=== PATIENT | female | born 1975 | race Caucasian/White ===

== ENCOUNTER 2021-01-29 10:35 | Outpatient (REF) | payer MEDICARE, MEDICAID, SELFPAY ==
[2021-01-29 11:45] LABS: COVID-19 Test Negative (Negative)
== END 2021-01-29 10:36 | disposition home or self-care (01) ==
LOC: HO.LAB 10:35
PROVIDERS: PCP Family Medicine; Visit Provider Internal Medicine
DX: Z20.822 Contact with and (suspected) exposure to COVID-19 (principal)
CPT/HCPCS: 36415; 87635; C9803

== ENCOUNTER 2022-10-16 17:40 | Emergency (ER) | payer OTHER, SELFPAY ==
--- NOTE | ~2022-10-16 | XR_ITS ---
EXAMINATION: XR WRIST, LEFT XR HAND, LEFT CLINICAL INFORMATION: Middle finger knuckle pain. COMPARISON: None available. TECHNIQUE: 4 views of the left hand including the wrist. FINDINGS: Moderate diffuse osteopenia. Moderate Triscaphe joint osteoarthrosis. No radiographic evidence of any displaced fracture and/or subluxation or radiopaque foreign body. XR/XR hand wrist LT IMPRESSION: Moderate diffuse osteopenia and moderate Triscaphe joint joint osteoarthrosis. No radiographic evidence of any displaced fracture, subluxation or dislocation or radiopaque foreign body.
[2022-10-16 18:39] VITALS: BP 137/70; PULSE 80; RESP 18; TEMP 37.1; O2SAT 98; BMI 27.1
--- NOTE | 2022-10-16 18:41 | ED.GENADULT ---
HPI - General Adult General Chief complaint: Extremity Injury, Upper Stated complaint: Rash on legs/Left hand knuckle injury Time Seen by Provider: 10/16/22 20:01 Source: patient Mode of arrival: ambulatory History of Present Illness HPI narrative: 47 yold female pressents to the ED for bilateral lower extremity itchy rash. patient denies any angioedema, chest pain, shortenss of breath, fever, chills, nausea, or vomitting. patient states having mutliple allergies. Secondary complaint of middle finger knuckle pain after hearing popping sound when sqeezing left hand to calm her anxiety. Related Data Previous Rx's Medication Instructions Recorded diphenhydramine HCl 25 mg capsule 25 mg PO TID PRN allergic reaction 10/16/22 (Benadryl) 7 days #21 caps famotidine 20 mg tablet (Pepcid) 20 mg PO BID 7 days #14 tabs 10/16/22 hydrocortisone 1 % topical cream 1 appl topical BID PRN rash #28.35 10/16/22 grams prednisone 20 mg tablet 40 mg PO DAILY 5 days #10 tabs 10/16/22 Allergies Allergy/AdvReac Type Severity Reaction Status Date / Time latex Allergy Rash Verified 10/16/22 18:38 mite-Dermatophagoides Allergy Rash Verified 10/16/22 18:38 farinae, gonzalo [dust mite - [place]] Penicillins [PCN] Allergy Rash Verified 10/16/22 18:38 perfume Allergy Rash Verified 10/16/22 18:38 Review of Systems Review of Systems: bilateral lower extremity rash and left knuckle pain Yes all other systems are reviewed and are negative PMFSH Social History Social History Advance Directives: No Advance Directives Information Provided: No Physical Exam ED Vital Signs: Vital Signs - 24 hr 10/16/22 18:39 Temperature 98.7 F Pulse Rate 80 Respiratory Rate 18 Blood Pressure 137/70 Pulse Oximetry 98 Oxygen Delivery Method Room Air BMI result Body Mass Index 27.1 Const General: cooperative, healthy appearing, comfortable, no acute distress, well developed, alert and awake Orientation/consciousness: oriented to person, oriented to place, oriented to time and patient oriented x3 HENMT Other: negative for angioedmea Head: Yes normal to inspection, Yes No palpable skull fracture present, Yes normocephalic and Yes atraumatic Eyes General: appearance normal, both eyes and all related structures Neck Neck: Yes normal visual inspection, Yes full ROM, Yes no lymphadenopathy, Yes no meningeal signs, Yes trachea midline, Yes supple, No anterior neck swelling and No tender Chest Chest palpation & inspection: normal inspection of the chest and normal palpation of entire chest wall Resp Effort & Inspection: normal respiratory effort and able to speak in complete sentences Auscultation: clear to auscultation bilaterally Cardio Jugular venous distension: no JVD Heart sounds: S1 normal heart sound present and S2 normal heart sound present GI Inspection: Yes normal to inspection and No abdominal wall ecchymosis Palpation (GI): Soft to palpation, not firm, nontender, no guarding and not rigid General: No CVA tenderness and Yes no CVA tenderness Back/Spine/Pelvis Back: no CVA tenderness, No CVA tenderness and No back tenderness Skin General skin exam: elasticity normal and turgor normal Neuro General: oriented to person, oriented to place, oriented to time, patient oriented x3, gait normal, tone normal, moves all extremities, Normal light touch and pain sensation, no meningeal signs and no focal motor deficits Extrem Other: Bilateral lower extremtity positive for uticaria. left knuckle positive for ecchymosis and tenderness. All extremities motor, neuro, vascular exam is intact. General: Yes full ROM and Yes capillary refill normal Psych Appearance: grossly normal, well kempt and not disheveled Course Course Course Narrative: RME: 47 yold female presents to the ED for bilateral itchy rash on lower extremities. patient has multipe allergies. patient denies any swelling of lips, tongue, or rash elswehere on the body. patient secondary complaint is left knucke pain after hear pop in right middle knuckle yesterday. middle finger knuckle is swollen and tenderness. THere is range of motion. motor, neuro, and vascular exam of left upper extremity is intact. xray ordered Medical Decision Making Medical Decision Making MDM Narrative: 47 yold female presents to the ED for bilateral itchy rash since yesterday. patient denies rash elsewehre on her body. patient has many allergies but denies any recent expsure to them. patient secondry complaint is hearing pop in knuckle of middle finger after sqeezing her of left hand to cope with anxiety. patient state area is brusing, swelling, and pain after popping sound. no blunt trauma to hand. Motor/neuro/vascular exam of all extremities is itnact. Differential Diagnosis Differential Diagnoses: The differential diagnosis associated with the presentation includes (cellulitis, allergic reaction, contact dermaitis, DVT, tendon injury, fracture, petehica) Admission/Observation Consideration of admission/observation: Escalation of care including admission/observation considered Independent Interpretation I performed an independent interpretation of an: Plain X-Ray Radiology Impression Discussion of test interpretation with radiology: I have reviewed the radiologist's reading. Discharge Plan Discharge Clinical Impression: Allergic reaction, Contact dermatitis, Finger sprain Patient Disposition: Home, Self-Care Instructions: Contact Dermatitis (DC), Finger Sprain (ED), General Allergic Reaction (ED) Additional Instructions: Return to the ED immediately for any fever, chills, nu[place], vomitting, worsening rash, swelling of lips/tongue/face, inability to move hand/finger, chest pain, shortness of breath, or any other concerning symptoms. Please follow up with PCP for re-evaluation and allergy test and possible MRI of hand. Prescriptions: New prednisone 20 mg tablet 40 mg PO DAILY 5 Days Qty: 10 0RF famotidine [Pepcid] 20 mg tablet 20 mg PO BID 7 Days Qty: 14 0RF diphenhydramine HCl [Benadryl] 25 mg capsule 25 mg PO TID PRN (Reason: allergic reaction) 7 Days Qty: 21 0RF hydrocortisone 1 % cream 1 appl topical BID PRN (Reason: rash) Qty: 28.35 0RF Interventions: ED Discharge Assessment Last Done: 10/16/22 20:27 Discharge Date/Time: 10/16/22 20:28 Print Language: [place]
--- NOTE | 2022-10-16 20:06 | PC.NURSE ---
pt placed in chair outside of triage waiting for discharge papers. pt aware calm and cooperative. no s/s of distress feels ready for discharge.
== END 2022-10-16 20:28 | disposition home or self-care (01) ==
PROVIDERS: Emergency Provider Internal Medicine
DX: S63.612A Unspecified sprain of right middle finger, initial encounter (principal); L50.0 Allergic urticaria; L25.9 Unspecified contact dermatitis, unspecified cause; F41.1 Generalized anxiety disorder; F43.0 Acute stress reaction; X58.XXXA Exposure to other specified factors, initial encounter; Y93.9 Activity, unspecified; Y92.9 Unspecified place or not applicable; Y99.9 Unspecified external cause status; Z79.899 Other long term (current) drug therapy
CPT/HCPCS: 73110; 73130; 99282; 99284